=== PATIENT | male | born 1990 | race African-American/Black ===

== ENCOUNTER 2021-02-26 12:56 | Emergency (ER) | payer OTHER ==
[2021-02-26 13:17] VITALS: BP 148/86; PULSE 86; TEMP 98.2; BMI 23.9
== END 2021-02-26 13:49 | disposition home or self-care (01) ==
LOC: JER 12:56 → JERFT 12:56
DX: Z48.02 Encounter for removal of sutures (principal)
CPT/HCPCS: 99281-25